=== PATIENT | female | born 1950 | race African-American/Black ===

== ENCOUNTER 2023-07-24 18:18 | Emergency (ER) | payer SELFPAY ==
[~2023-07-24] VITALS: Ht 162.6 cm; Wt 61.0 kg
[2023-07-24 18:21] VITALS: BP 144/67; PULSE 86; RESP 18; TEMP 98.6; O2SAT 95
[2023-07-24 19:48] LABS: HEMATOCRIT. 34.4 % (36.0-48.0); MEAN CORPUSCULAR VOLUME 90.6 fL (81.0-99.0); MEAN PLATELET VOLUME 10.5 fl (7.4-10.4); PLATELET 106 x1000/uL (130-400); RED CELL DISTRIBUTION WIDTH 15.7 % (11.6-14.6)
[2023-07-24 19:49] LABS: DIFFERENTIAL COMMENT 1
[2023-07-24 20:00] LABS: CHLORIDE 110 mEq/L (98-107); INDEX HEMOLYSI 1 (1-3); INDEX ICTERIC 1 (1-4); INDEX LIPEMIC 1 (1-3); POTASSIUM 4.6 mEq/L (3.5-5.1); SODIUM 142 mEq/L (136-145)
[2023-07-24 20:13] LABS: ALANINE AMINOTRANSFERASE 15 IU/L (13-61); ALBUMIN 3.5 g/dL (3.4-5.0); ASPARTATE AMINOTRANSFERASE 17 IU/L (15-37); BILIRUBIN TOTAL 0.4 mg/dL (0.1-1.0); CALCIUM 9.3 mg/dL (8.5-10.1); CARBON DIOXIDE 27 mEq/L (21-32); CREATININE 2.7 mg/dL (0.6-1.3); GLUCOSE 86 mg/dL (70-105); NT PRO B-TYPE NATRIURETIC PEP 2200 pg/mL (5-125); PROTEIN TOTAL 7.8 g/dL (6.0-8.3); TROPONIN I HIGH SENSITIVITY 14 ng/L (<54); UREA NITROGEN BLOOD 67 mg/dL (7-21)
[2023-07-24 20:35] LABS: PLATELET ESTIMATE DECREASED
[2023-07-24 21:29] LABS: TROPONIN I HIGH SENSITIVITY 14 ng/L (<54)
== END 2023-07-24 22:12 | disposition home or self-care (01) ==
LOC: ER 18:18
DX: R07.9 Chest pain, unspecified (principal); I10 Essential (primary) hypertension; I12.9 Hypertensive chronic kidney disease with stage 1 through stage 4 chronic kidney disease, or unspecified chronic kidney disease; N18.9 Chronic kidney disease, unspecified
CPT/HCPCS: 36415; 71045; 80053; 83880; 84484; 85025; 93005; 99285